=== PATIENT | female | born 1950 | race Caucasian/White ===

== ENCOUNTER 2019-03-28 06:45 | Emergency (ER) | payer MEDICARE ==
[~2019-03-28] VITALS: Ht 162.6 cm; Wt 90.7 kg
[2019-03-28] MEDS ORDERED: ATOR80TA PO (07:01)
[2019-03-28] MEDS ORDERED: LOSA50TA39 PO (07:01)
[2019-03-28] MEDS ORDERED: DIPH25CA83 PO (07:01)
[2019-03-28] MEDS ORDERED: SERT100T PO (07:01)
[2019-03-28] MEDS ORDERED: MORPHINE SULFATE 4 MG/1 ML DISP.SYRIN ONE (07:06)
[2019-03-28] MEDS: MORPHINE SULFATE 4 MG/1 ML DISP.SYRIN IM ONE (07:08)
[2019-03-28 07:23] LABS: CREATININE 1.9 mg/dL (0.6-1.3); POTASSIUM 3.8 mmol/L (3.5-5.1)
[2019-03-28 07:55] VITALS: BP 161/94
--- NOTE | 2019-03-28 08:04 | NUR ---
Patient discharged to home in stable conditon. Written and verbal after care instructions given. Patient verbalizes understanding of instructions. Pt walked out of ER w/ steady gait.
== END 2019-03-28 08:06 | disposition home or self-care (01) ==
LOC: ER 06:45
DX: M25.542 Pain in joints of left hand (principal); M25.541 Pain in joints of right hand; N28.9 Disorder of kidney and ureter, unspecified; M79.604 Pain in right leg; M79.605 Pain in left leg; E78.5 Hyperlipidemia, unspecified; Z88.2 Allergy status to sulfonamides; Z79.899 Other long term (current) drug therapy
CPT/HCPCS: 36415; 80048; 82550; 96372; 99283; J2270; A4663